=== PATIENT | male | born 1970 ===

== ENCOUNTER 2019-10-20 08:21 | Emergency (ER) | payer SELFPAY ==
[2019-10-20 08:27] VITALS: BP 126/83
[2019-10-20] MEDS ORDERED: ASPIRIN 325 MG TAB PO ONE (08:35)
--- NOTE | 2019-10-20 09:14 | Emergency Department Report ---
ED Chest Pain HPI - General Chief Complaint: Chest Pain Stated Complaint: CHEST PAIN, BLOOD PRESSURE, DIZZY Time Seen by Provider: 10/20/19 09:05 Source: patient Mode of arrival: Ambulatory Limitations: No Limitations - History of Present Illness Initial Comments: This is a 49-year-old male with a history of hypertension, hypercholesterol unsure what medication who presents to ED complaining of chest discomfort for the past 3-4 days. 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 Patient also states that earlier today he experienced some tingling sensation on his left arm. Patient reports taking metoprolol twice a day and amlodipine once daily. She states he takes his medication appropriately should. Patient states that the past couple of days he's noticed his blood pressure has been slightly elevated. He denies headache, blurred vision, shortness of breath, dizziness, MD Complaint: chest pain -: Gradual, days(s) Pain Radiation: none Severity: mild - Related Data Allergies Allergy/AdvReac Type Severity Reaction Status Date / Time No Known Allergies Allergy Unverified 10/20/19 08:28 Heart Score - HEART Score History: Slightly suspicious EKG: Normal Age: 45-65 Risk factors: 1-2 risk factors Troponin: < normal limit HEART Score: 2 ED Review of Systems ROS: Stated complaint: CHEST PAIN, BLOOD PRESSURE, DIZZY Other details as noted in HPI Comment: All other systems reviewed and negative ED Past Medical Hx - Past Medical History Hx Hypertension: Yes - Social History Smoking Status: Never Smoker ED Physical Exam - General Limitations: No Limitations General appearance: alert, in no apparent distress - Head Head exam: Present: atraumatic, normocephalic - Eye Eye exam: Present: normal appearance - ENT ENT exam: Present: mucous membranes moist - Neck Neck exam: Present: normal inspection - Respiratory Respiratory exam: Present: normal lung sounds bilaterally. Absent: respiratory distress - Cardiovascular Cardiovascular Exam: Present: regular rate, normal rhythm. Absent: systolic murmur, diastolic murmur, rubs, gallop - GI/Abdominal GI/Abdominal exam: Present: soft, normal bowel sounds - Rectal Rectal exam: Present: deferred - Extremities Exam Extremities exam: Present: normal inspection - Back Exam Back exam: Present: normal inspection - Neurological Exam Neurological exam: Present: alert, oriented X3 - Psychiatric Psychiatric exam: Present: normal affect, normal mood - Skin Skin exam: Present: warm, dry, intact, normal color. Absent: rash ED Course Vital Signs 10/20/19 08:25 Temperature 97.5 F L Pulse Rate 77 Respiratory 16 Rate Blood Pressure 126/83 O2 Sat by Pulse 98 Oximetry LAUREN score - Lauren Score Age > 65: (0) No Aspirin use within the Past 7 Days: (0) No 3 or more CAD Risk Factors: (0) No 2 or more Angina events in past 24 hrs: (0) No Known CAD with more than 50% Stenosis: (0) No Elevated Cardiac Markers: (0) No ST Deviation Greater than 0.5mm: (0) No LAUREN Score: 0 ED Medical Decision Making - Lab Data Result diagrams: 10/20/19 09:29 10/20/19 09:29 - EKG Data EKG shows normal: sinus rhythm - EKG Data Interpretation: no acute changes, normal EKG - Radiology Data Radiology results: report reviewed, image reviewed Fluoro Time In Minutes: CHEST 1 VIEW INDICATION: Chest Pain. COMPARISON: None FINDINGS: Support devices: None. Heart: Within normal limits. Lungs/Pleura: No acute air space or interstitial disease. Additional findings: None. IMPRESSION: Normal AP chest Signer Name: Moy Villarreal Jr, MD Signed: 10/20/2019 9:11 AM Workstation Name: [id number] Transcribed By: TTR Dictated By: MOY VILLARREAL JR, MD Electronically Authenticated By: MOY VILLARREAL JR, MD Signed Date/Time: 10/20/19 0911 - Medical Decision Making 49-year-old male who presented with chest pain. All labs are within normal limits. Troponin, proBNP was negative. X-ray and EKG were normal. Before second troponin was drawn patient left the ER. I had initially discussed with the patient to follow-up with his primary care physician for management of his blood pressure. During patient's ED stay patient had no acute distress - Differential Diagnosis WI, costochondritis, GERD Critical care attestation.: If time is entered above; I have spent that time in minutes in the direct care of this critically ill patient, excluding procedure time. ED Disposition Clinical Impression: Chest pain, Atypical chest pain Disposition: ELOPED Is pt being admited?: No Does the pt Need Aspirin: No Condition: Stable Instructions: Chest Pain (ED), Costochondritis (ED) Additional Instructions: Make sure to follow up with the primary care physician as discussed. Continue to take blood pressure medication as prescribed by her primary care physician. Patient to follow-up with their primary care physician. If you have any worsening symptoms or develop new symptoms please return to ED immediately. Referrals: PRIMARY CARE, [Primary Care Provider] - 3-5 Days Forms: Work/School Release Form(ED) Time of Disposition: 11:58
[2019-10-20 09:55] LABS: Basophils # (Auto) 0.1 K/mm3 (0.0-0.1); Basophils % (Auto) 0.8 % (0.0-1.8); Eosinophils # (Auto) 0.2 K/mm3 (0.0-0.4); Eosinophils % (Auto) 3.1 % (0.0-4.3); Hematocrit 42.6 % (35.5-45.6); Hemoglobin 14.6 gm/dl (11.8-15.2); Lymphocytes # (Auto) 1.4 K/mm3 (1.2-5.4); Lymphocytes % (Auto) 21.7 % (13.4-35.0); Mean Corpuscular HGB Conc 34 % (32-34); Mean Corpuscular Volume 92 fl (84-94); Monocytes # (Auto) 0.5 K/mm3 (0.0-0.8); Monocytes % (Auto) 7.7 % (0.0-7.3); Platelet Count 232 K/mm3 (140-440); Red Blood Count 4.65 M/mm3 (3.65-5.03); Red Cell Distribution Width 13.5 % (13.2-15.2)
[2019-10-20 10:16] LABS: BUN/Creatinine Ratio 25; Blood Urea Nitrogen 15 mg/dL (9-20); Calcium 9.4 mg/dL (8.4-10.2); Hemolysis Index 26
== END 2019-10-20 13:10 | disposition left against medical advice (07) ==
LOC: ED 08:21
DX: R07.89 Other chest pain (principal); I10 Essential (primary) hypertension
CPT/HCPCS: 36415; 71045; 80048; 83880; 84484; 85025; 93005; 93010